=== PATIENT | female | born 2000 | race Two or more races ===

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

== ENCOUNTER 2018-02-28 22:08 | Emergency (ER) | payer OTHER ==
[~2018-02-28] VITALS: Ht 160 cm; Wt 43.1 kg
[2018-03-01] MEDS ORDERED: DOXYCYCLINE HY100 MG PO (09:32)
== END 2018-03-01 12:05 | disposition home or self-care (01) ==
LOC: ER 22:08
DX: O03.9 Complete or unspecified spontaneous abortion without complication (principal)

== ENCOUNTER → 2019-05-11 | Outpatient (CLI) | payer OTHER ==
[~2019-05-11] MED LIST changes: +DOXYCYCLINE HY100 MG PO
== END | disposition home or self-care (01) ==
LOC: PRENATAL 14:30
DX: O35.3XX0 Maternal care for (suspected) damage to fetus from viral disease in mother, not applicable or unspecified (principal); O36.1990 Maternal care for other isoimmunization, unspecified trimester, not applicable or unspecified

== ENCOUNTER 2019-08-12 20:19 | Outpatient (CLI) | payer OTHER | END 2019-08-12 21:21 | disposition home or self-care (01) | LOC: NST 20:19 | DX: Z34.83 Encounter for supervision of other normal pregnancy, third trimester (principal) ==

== ENCOUNTER 2019-08-26 06:59 | Inpatient (IN) | payer OTHER ==
[~2019-08-26] VITALS: Ht 160 cm; Wt 53.5 kg
[2019-08-26] MEDS ORDERED: PRENATABS RX T1 EACH PO (08:21)
[2019-08-26] MEDS ORDERED: FE C PLUS TABL1 EACH PO (08:21)
[2019-08-28] MEDS ORDERED: FERROUS SULFAT325 M1 PO (09:42)
[2019-08-28] MEDS ORDERED: DOCUSATE SODIU100 MG PO (09:43)
== END 2019-08-28 14:02 | disposition home or self-care (01) | DRG 807 ==
LOC: OB/GYN 06:59 → LDR 06:59 → OB/GYN 11:17
PROVIDERS: ADMIT Obstetrics & Gynecology
PROC: 10E0XZZ Delivery of Products of Conception, External Approach (ICD-10-PCS; principal; 2019-08-26)
PROC: 0KQM0ZZ Repair Perineum Muscle, Open Approach (ICD-10-PCS; 2019-08-26)
PROC: 4A1HXCZ Monitoring of Products of Conception, Cardiac Rate, External Approach (ICD-10-PCS; 2019-08-26)
DX: O70.1 Second degree perineal laceration during delivery (principal); Z37.0 Single live birth; Z3A.37 37 weeks gestation of pregnancy